=== PATIENT | male | born 1970 | race Caucasian/White ===

== ENCOUNTER 2021-03-31 04:02 | Emergency (ER) | payer OTHER ==
[2021-03-31 04:08] VITALS: BP 177/97; PULSE 78; RESP 18; TEMP 98.1
--- NOTE | 2021-03-31 04:59 | ED ---
General Adult HPI - General Chief complaint: Recheck/Abnormal Lab/Rx Stated complaint: Covid Test Time Seen by Provider: 03/31/21 04:04 Source: patient Mode of arrival: ambulatory - History of Present Illness Initial comments: Patient is a 50-year-old man who presents to have COVID-19 test [place] He declines medical screening exam. He denies medical complaint - Related Data Allergies Allergy/AdvReac Type Severity Reaction Status Date / Time Penicillins Allergy Rash/Hives Verified 03/31/21 04:08 Review of Systems ROS Statement: Those systems with pertinent positive or pertinent negative responses have been documented in the HPI. ROS Other: All systems not noted in ROS Statement are negative. Past Medical History Past Medical History: No Reported History History of Any Multi-Drug Resistant Organisms: None Reported Past Surgical History: No Surgical Hx Reported Past Psychological History: No Psychological Hx Reported Smoking Status: Never smoker Past Alcohol Use History: None Reported Past Drug Use History: None Reported Course Vital Signs 03/31/21 04:06 Temperature 98.1 F Pulse Rate 78 Respiratory 18 Rate Blood Pressure 177/97 O2 Sat by Pulse 97 Oximetry Medical Decision Making - Lab Data Lab Results 03/31/21 Range/Units 04:17 Coronavirus (PCR) Not Detected (Not Detectd) Disposition Clinical Impression: Encounter for immunological test Disposition: HOME SELF-CARE Condition: Good Is patient prescribed a controlled substance at d/c from ED?: No Referrals: None,Stated [Primary Care Provider] - 1-2 days
== END 2021-03-31 05:05 | disposition home or self-care (01) ==
LOC: EC 04:02
DX: Z01.84 Encounter for antibody response examination (principal); Z20.822 Contact with and (suspected) exposure to COVID-19
CPT/HCPCS: 87635; 99282

== ENCOUNTER 2021-09-19 04:22 | Emergency (ER) | payer SELFPAY ==
[2021-09-19 04:28] VITALS: BP 180/101; PULSE 67; RESP 18; TEMP 97.8
--- NOTE | 2021-09-19 04:36 | ED ---
General Adult HPI - General Chief complaint: Recheck/Abnormal Lab/Rx Stated complaint: Covid Test Source: patient Mode of arrival: ambulatory Limitations: no limitations - Related Data Allergies Allergy/AdvReac Type Severity Reaction Status Date / Time Penicillins Allergy Rash/Hives Verified 03/31/21 04:08 Review of Systems ROS Statement: Those systems with pertinent positive or pertinent negative responses have been documented in the HPI. ROS Other: All systems not noted in ROS Statement are negative. Past Medical History Past Medical History: No Reported History History of Any Multi-Drug Resistant Organisms: None Reported Past Surgical History: No Surgical Hx Reported Past Psychological History: No Psychological Hx Reported Smoking Status: Never smoker Past Alcohol Use History: None Reported Past Drug Use History: None Reported General Exam Limitations: no limitations Course Vital Signs 09/19/21 04:26 Temperature 97.8 F Pulse Rate 67 Respiratory 18 Rate Blood Pressure 180/101 O2 Sat by Pulse 96 Oximetry Disposition Clinical Impression: Encounter for immunological test Disposition: HOME SELF-CARE Condition: Good Is patient prescribed a controlled substance at d/c from ED?: No Referrals: None,Stated [Primary Care Provider] - 1-2 days
== END 2021-09-19 05:43 | disposition home or self-care (01) ==
LOC: EC 04:22
DX: Z20.822 Contact with and (suspected) exposure to COVID-19 (principal); Z88.0 Allergy status to penicillin
CPT/HCPCS: 87635; 99282